=== PATIENT | male | born 1950 ===

== ENCOUNTER 2018-07-03 09:37 | Inpatient (IN) | payer OTHER ==
[~2018-07-03] VITALS: Ht 175.3 cm; Wt 79.8 kg
[2018-07-03] MEDS ORDERED: LEVETIRACETAM1000 MG PO (10:06)
[2018-07-03] MEDS ORDERED: PREZCOBIX 8001 EACH PO (10:07)
[2018-07-03] MEDS ORDERED: DESCOVY 200-251 EACH PO (10:07)
[2018-07-03] MEDS ORDERED: ATORVASTATIN CA10 MG PO (10:08)
[2018-07-03] MEDS ORDERED: TIVICAY50 MG PO (10:09)
[2018-07-06] MEDS ORDERED: LIPITOR40 MG PO (12:39)
[2018-07-06] MEDS ORDERED: CLOPIDOGREL BIS75 MG PO (12:39)
[2018-07-06] MEDS ORDERED: KEPPRA500 MG PO ×2 (12:39→13:41)
== END 2018-07-06 16:39 | DRG 64 ==
LOC: ER 09:37 → MEDJ 21:18 → MEDI 21:18 → MEDJ 07-04 13:18
PROC: B030ZZZ Magnetic Resonance Imaging (MRI) of Brain (ICD-10-PCS; principal; 2018-07-03)
PROC: B345ZZZ Ultrasonography of Bilateral Common Carotid Arteries (ICD-10-PCS; 2018-07-03)
PROC: B348ZZZ Ultrasonography of Bilateral Internal Carotid Arteries (ICD-10-PCS; 2018-07-03)
PROC: B246ZZZ Ultrasonography of Right and Left Heart (ICD-10-PCS; 2018-07-03)
PROC: 4A12X4Z Monitoring of Cardiac Electrical Activity, External Approach (ICD-10-PCS; 2018-07-04)
DX: I63.512 Cerebral infarction due to unspecified occlusion or stenosis of left middle cerebral artery (principal); B20 Human immunodeficiency virus [HIV] disease; G40.89 Other seizures; G81.11 Spastic hemiplegia affecting right dominant side; R47.81 Slurred speech
CPT/HCPCS: 70551